=== PATIENT | male | born 1995 | race American Indian/Alaskan Native ===

== ENCOUNTER 2017-04-24 14:13 | Emergency (ER) | payer MEDICAID, OTHER ==
[2017-04-24 14:13] VITALS: BMI 28.7
[2017-04-24] MEDS ORDERED: Naproxen 550 mg Tab PO STA (14:32)
[2017-04-24] MEDS ORDERED: Naproxen 550 mg Tab PO ONE (14:35)
--- NOTE | 2017-04-24 14:45 | C.PDOC ---
History Of Present Illness Patient presents to ED c/o left ankle pain after twisting it when going down the stairs yesterday. He denies any other injuries, sensory changes, rash, fever. Time Seen by Provider: 04/24/17 14:18 Chief Complaint (Nursing): Lower Extremity Problem/Injury History Per: Patient History/Exam Limitations: no limitations Onset/Duration Of Symptoms: Days (2) Current Symptoms Are (Timing): Still Present Severity: Mild - Ankle/Foot Description Of Injury: Twisted Past Medical History Reviewed: Historical Data, Nursing Documentation, Vital Signs Vital Signs: Last Vital Signs Temp 98.4 F 04/24/17 15:39 Pulse 51 L 04/24/17 15:39 Resp 18 04/24/17 15:39 BP 112/66 04/24/17 15:39 Pulse Ox 98 04/24/17 15:39 - Medical History PMH: No Chronic Diseases Family History: States: No Known Family Hx - Social History Hx Alcohol Use: No Hx Substance Use: No - Immunization History Hx Tetanus Toxoid Vaccination: Yes Hx Influenza Vaccination: Yes Hx Pneumococcal Vaccination: Yes Review Of Systems Except As Marked, All Systems Reviewed And Found Negative. Constitutional: Negative for: Fever, Chills Cardiovascular: Negative for: Chest Pain Respiratory: Negative for: Shortness of Breath Skin: Negative for: Rash Neurological: Positive for: Other (left ankle pain, swelling) Physical Exam - Physical Exam Appears: Well, Non-toxic, No Acute Distress Skin: Warm, Dry, No Rash Head: Atraumatic, Normacephalic Cardiovascular: Rhythm Regular Respiratory: Normal Breath Sounds, No Rales, No Rhonchi, No Wheezing Extremity: Normal ROM, No Calf Tenderness, Capillary Refill (< 2 sec all digits ), No Deformity, Swelling (left ankle mildly swollen and TTP at laterla malleolus) Extremity: Bilateral: Normal Color And Temperature Pulses: Left Dorsalis Pedis: Normal, Right Dorsalis Pedis: Normal Neurological/Psych: Oriented x3, Normal Sensation ED Course And Treatment O2 Sat by Pulse Oximetry: 100 (RA) Pulse Ox Interpretation: Normal - Other Rad left ankle xray X-Ray: Viewed By Me, Read By Radiologist Interpretation: Accession No. : [id number]. Patient Name / ID : ALEXANDRIA OMALLEY / [id number]. Exam Date : 04/24/2017 14:35:27 ( Approved ). Study Comment : Sex / Age : M / 21Y. Creator : Kenn Cortez MD. Dictator : Kenn Cortez MD. Claim Review Medical Director : Farm Advisor : Kenn Cortez MD. Approver2 : Report Date : 04/24/2017 15:22:52. My Comment : . PROCEDURE: Left Ankle Radiographs. HISTORY: left ankle sprain. COMPARISON: None. FINDINGS: BONES: Normal. No fracture. JOINTS: Normal. No osteoarthritis. Ankle mortise maintained. Talar dome intact. SOFT TISSUES: Mild lateral malleolar soft tissue edema identified. OTHER FINDINGS: None. IMPRESSION: No acute fracture dislocation identified. Mild lateral malleolar soft edema identified. Progress Note: Patient given PO Naprosyn for pain. Xray of left ankle ordered and reviewed. Reevaluation Time: 15:25 Reassessment Condition: Improved (Patient reassessed, pain has improved. Xray ( -) for fracture/dislocation. Patient placed in isabella wrap, air cast and cructhes by avionics systems technician, checked by me- (+) NV intact. He was instructed to follow up with orthopedics/podiatry [id number] 1 week. Patient given rx for pain medication, and understands he should refain from sports/exercise until cleared by specialist.) Disposition Counseled Patient/Family Regarding: Studies Performed, Diagnosis, Need For Followup, Rx Given - Disposition Referrals: Mansoor Chavira III, MD [Staff Provider] - [facility] [Outside] [facility] [Outside] Disposition: HOME/ ROUTINE Disposition Time: 15:25 Condition: STABLE Additional Instructions: FOLLOW UP WITH ORTHOPEDICS OR PODIATRY WITHIN 1 WEEK USE PAIN MEDICATION NEEDED ELEVATE ANKLE MUCH POSSIBLE NO GYM/SPORTS UNTIL CLEARED BY ORTHO/PODIATRY Prescriptions: Naproxen [Naprosyn Tab] 375 mg PO BID PRN #20 tab PRN Reason: pain Instructions: Ankle Sprain (ED), Ankle Stirrup Splint (ED) Forms: [facility] (Yoruba) Print Language: LITHUANIAN - POA Present On Arrival: Falls Or Trauma - Clinical Impression Clinical Impression: Left ankle sprain
--- NOTE | 2017-04-24 15:24 | RAD ---
PROCEDURE: Left Ankle Radiographs. HISTORY: left ankle sprain COMPARISON: None FINDINGS: BONES: Normal. No fracture. JOINTS: Normal. No osteoarthritis. Ankle mortise maintained. Talar dome intact SOFT TISSUES: Mild lateral malleolar soft tissue edema identified. OTHER FINDINGS: None. IMPRESSION: No acute fracture dislocation identified. Mild lateral malleolar soft edema identified.
[2017-04-24 15:40] VITALS: BP 112/66; PULSE 51; RESP 18; TEMP 98.4
[2017-04-24 17:16] VITALS: O2SAT 100
== END 2017-04-24 16:00 | disposition home or self-care (01) ==
LOC: C.ER 14:13
DX: S93.402A Sprain of unspecified ligament of left ankle, initial encounter (principal)